=== PATIENT | female | born 1985 | race Asian ===

== ENCOUNTER 2019-08-04 19:23 | Emergency (ER) | payer BC ==
[~2019-08-04] VITALS: Ht 154.9 cm; Wt 64.0 kg
[2019-08-04 19:33] VITALS: Ht 154.9 cm; Wt 64.0 kg
[2019-08-04 20:27] VITALS: BP 120/80
== END 2019-08-04 20:27 | disposition home or self-care (01) ==
LOC: ED 19:23
DX: H00.033 Abscess of eyelid right eye, unspecified eyelid (principal)

== ENCOUNTER 2019-08-05 20:14 | Emergency (ER) | payer BC ==
[~2019-08-05] VITALS: Ht 154.9 cm; Wt 63.0 kg
[2019-08-05 21:03] VITALS: BP 139/92; Ht 154.9 cm; Wt 63.0 kg
== END 2019-08-05 22:16 | disposition home or self-care (01) ==
LOC: ED 20:14
DX: H04.301 Unspecified dacryocystitis of right lacrimal passage (principal)

== ENCOUNTER 2019-10-28 11:39 | Emergency (ER) | payer OTHER, SELFPAY ==
[~2019-10-28] VITALS: Ht 154.9 cm; Wt 62.6 kg
[2019-10-28 11:54] VITALS: Ht 154.9 cm; Wt 62.6 kg
[2019-10-28 13:22] LABS: UA SPECIFIC GRAVITY 1.015 (1.005-1.035); microscopic required? YES; urine erythrocyte 3+ (NEGATIVE)
[2019-10-28 14:29] VITALS: BP 128/79
== END 2019-10-28 14:29 | disposition home or self-care (01) ==
LOC: ED 11:39
PROVIDERS: Emergency Medicine
DX: N39.0 Urinary tract infection, site not specified (principal); B34.9 Viral infection, unspecified; E05.90 Thyrotoxicosis, unspecified without thyrotoxic crisis or storm; Z20.828 Contact with and (suspected) exposure to other viral communicable diseases; Z88.5 Allergy status to narcotic agent; Z88.6 Allergy status to analgesic agent
CPT/HCPCS: 87804; J0696

== ENCOUNTER 2019-12-24 16:47 | Inpatient (IN) | payer OTHER, SELFPAY ==
[~2019-12-24] VITALS: Ht 162.6 cm; Wt 63.6 kg
[2019-12-24 17:38] VITALS: Ht 162.6 cm; Wt 63.6 kg
[2019-12-24 19:02] LABS: PLATELET COUNT 192 x10^3mcL (130-400); RED CELL DISTRIBUTION WIDTH 14.3 % (11.5-14.5)
[2019-12-24 19:15] LABS: BAND NEUTROPHIL 2 % (0-10); BASOPHIL 0 % (0-2); MONOCYTE 6 % (0-7); PLATELET MORPHOLOGY PLATELETS NORMAL; SEGMENTED NEUTROPHILS 87 % (37-75); rbc morphology (normal/abnorm) NORMAL (NORMAL)
[2019-12-24 19:18] LABS: CALCIUM 8.6 mg/dL (8.5-10.1); CARBON DIOXIDE 22.8 mmol/L (21-32); CHLORIDE SERUM 98 mmol/L (98-107); CREATININE SERUM 0.8 mg/dL (0.6-1.0); GFR1 > 60 mL/min; GLUCOSE SERUM 121 mg/dL (74-106); POTASSIUM SERUM 3.2 mmol/L (3.5-5.1); SODIUM SERUM 135 mmol/L (136-145)
[2019-12-24 19:27] LABS: ALKALINE PHOSPHATASE 73 U/L (46-116); ALT/SGPT 28 U/L (14-59); AST/SGOT 19 U/L (15-37); BILIRUBIN TOTAL 0.7 mg/dL (0.20-1.00)
[2019-12-24 19:28] LABS: TOTAL PROTEIN, SERUM 8.3 g/dL (6.4-8.2)
[2019-12-25 01:00] VITALS: BP 142/87
[2019-12-25 07:49] LABS: BASOPHIL % 0.2 % (0-2); PLATELET COUNT 154 x10^3mcL (130-400); RED CELL DISTRIBUTION WIDTH 14.1 % (11.5-14.5)
[2019-12-25 08:02] LABS: CALCIUM 7.8 mg/dL (8.5-10.1); CHLORIDE SERUM 105 mmol/L (98-107); CREATININE SERUM 0.6 mg/dL (0.6-1.0); GFR1 > 60 mL/min; GLUCOSE SERUM 115 mg/dL (74-106); POTASSIUM SERUM 3.6 mmol/L (3.5-5.1); SODIUM SERUM 138 mmol/L (136-145)
[2019-12-25 08:39] VITALS: BP 103/65
[2019-12-25 13:24] VITALS: BP 122/74
[2019-12-25 17:45] VITALS: BP 123/79
[2019-12-25 21:30] VITALS: BP 107/67
[2019-12-26 02:12] LABS: UA SPECIFIC GRAVITY 1.015 (1.005-1.035); microscopic required? YES; urine erythrocyte 2+ (NEGATIVE)
[2019-12-26 06:06] VITALS: BP 119/79
[2019-12-26 07:07] LABS: BASOPHIL % 1.4 % (0-2); PLATELET COUNT 148 x10^3mcL (130-400); RED CELL DISTRIBUTION WIDTH 14.2 % (11.5-14.5)
[2019-12-26 07:42] LABS: CHLORIDE SERUM 107 mmol/L (98-107); CREATININE SERUM 0.5 mg/dL (0.6-1.0); GFR1 > 60 mL/min; GLUCOSE SERUM 113 mg/dL (74-106); POTASSIUM SERUM 3.4 mmol/L (3.5-5.1); SODIUM SERUM 141 mmol/L (136-145)
[2019-12-26 08:59] VITALS: BP 127/82
[2019-12-26 12:17] VITALS: BP 126/83
[2019-12-26 12:33] VITALS: BP 126/83
== END 2019-12-26 14:48 | disposition home or self-care (01) | DRG 872 ==
LOC: ED 16:47 → DU 20:24
PROVIDERS: Student in an Organized Health Care Education/Training Program; ADMIT Internal Medicine Pulmonary Disease; ATTEND Internal Medicine Pulmonary Disease
DX: A41.9 Sepsis, unspecified organism (principal); N10 Acute pyelonephritis; E03.9 Hypothyroidism, unspecified; R16.0 Hepatomegaly, not elsewhere classified; E87.6 Hypokalemia; Z88.6 Allergy status to analgesic agent; Z79.899 Other long term (current) drug therapy; Z20.828 Contact with and (suspected) exposure to other viral communicable diseases
CPT/HCPCS: G0378; J0696; J1650; J7030; J7060; Q0092; Q9967; U0003-CS